=== PATIENT | female | born 1980 | race American Indian/Alaskan Native ===

== ENCOUNTER 2017-02-24 10:46 | Emergency (ER) | payer MEDICAID ==
[2017-02-24 10:46] VITALS: BMI 22.8
[2017-02-24 11:07] VITALS: RESP 18; TEMP 97.7; O2SAT 99
[2017-02-24] MEDS ORDERED: Sodium Chloride 0.9% 1,000 ML IV STA (11:40)
--- NOTE | 2017-02-24 11:46 | ED PDOC ---
Arrival/HPI - General Chief Complaint: Abdominal Pain Time Seen by Provider: 02/24/17 11:25 Historian: Patient - History of Present Illness Narrative History of Present Illness (Text): 02/24/17 11:40 36yo female who present with complaint of b/l flank and back pain x 3days. + Dysuria. States she was constipation, but able to move her bowel this morning with OTC laxative. She denies urinary frequency, hematuria, nausea, vomiting, diarrhea, constipation, trauma, any other complaint. Past Medical History - Provider Review Nursing Documentation Reviewed: Yes - Infectious Disease Hx of Infectious Diseases: None - Tetanus Immunization Tetanus Immunization: Unknown - Past Medical History Past Medical History: No Previous - Psychiatric Hx Psychophysiologic Disorder: Yes Hx Anxiety: Yes Hx Depression: No Hx Emotional Abuse: No Hx Physical Abuse: No Hx Substance Use: No - Past Surgical History Past Surgical History: No Previous - Anesthesia Hx Anesthesia: No - Suicidal Assessment Feels Threatened In Home Enviroment: No Family/Social History - Physician Review Nursing Documentation Reviewed: Yes Family/Social History: Unknown Family HX Smoking Status: Light Smoker < 10 Cigarettes Daily Hx Alcohol Use: Yes Hx Substance Use: No Substance used: ecstacy Hx Substance Use Treatment: No Allergies/Home Meds Allergies/Adverse Reactions: Allergies No Known Allergies Allergy (Verified 02/24/17 11:03) Review of Systems - Physician Review All systems were reviewed & negative as marked: Yes - Review of Systems Constitutional: Normal Eyes: Normal ENT: Normal Respiratory: Normal Cardiovascular: Normal Gastrointestinal: Abdominal Pain. absent: Constipation, Diarrhea, Nausea, Vomiting, Hematochezia, Hematemesis Genitourinary Female: Normal Musculoskeletal: Normal Skin: Normal Neurological: Normal Endocrine: Normal Hemo/Lymphatic: Normal Psychiatric: Normal Physical Exam Vital Signs Reviewed: Yes Vital Signs Temp Pulse Resp BP Pulse Ox 02/24/17 12:36 99 H 18 108/74 99 02/24/17 11:06 97.7 F 105 H 18 106/72 99 Temperature: Afebrile Blood Pressure: Normal Pulse: Regular Respiratory Rate: Normal Appearance: Positive for: Well-Appearing, Non-Toxic, Comfortable Pain Distress: None Mental Status: Positive for: Alert and Oriented X 3 - Systems Exam Head: Present: Atraumatic, Normocephalic Pupils: Present: PERRL Extroacular Muscles: Present: EOMI Conjunctiva: Present: Normal Mouth: Present: Moist Mucous Membranes Neck: Present: Normal Range of Motion Respiratory/Chest: Present: Clear to Auscultation, Good Air Exchange. No: Respiratory Distress, Accessory Muscle Use Cardiovascular: Present: Regular Rate and Rhythm, Normal S1, S2. No: Murmurs Abdomen: Present: Tenderness (B/L flank), Normal Bowel Sounds, Other (Soft). No : Distention, Peritoneal Signs, Rebound, Guarding, McBurney's Point Tender, Rovsing's Sign Present Back: No: CVA Tenderness Upper Extremity: Present: Normal Inspection. No: Cyanosis, Edema Lower Extremity: Present: Normal Inspection. No: Edema Neurological: Present: GCS=15, CN II-XII Intact, Speech Normal Skin: Present: Warm, Dry, Normal Color. No: Rashes Psychiatric: Present: Alert, Oriented x 3, Normal Insight, Normal Concentration Medical Decision Making ED Course and Treatment: 02/24/17 19:02 PT was afebrile and hemodynamically stable in ED. She was treated with a dose of Rocephin for UTI in ED and DC home with Cipro. Referred to her PMD. PT complained of cough on further evaluation. Her lung was CTA b/l. She notes that she smokes cigarette. Was counselled on smoking cessation. Rx of Tessalon given. - Lab Interpretations Lab Results: Lab Results 02/24/17 11:45: Urine Color Yellow, Urine Appearance Cloudy, Urine pH 6.0, Ur Specific [place] 1.025, Urine Protein 100 H, Urine Glucose (UA) Negative, Urine Ketones Negative, Urine Blood Moderate H, Urine Nitrate Positive H, Urine Bilirubin Negative, Urine Urobilinogen 0.2, Ur Leukocyte Esterase Large H, Urine RBC 1 - 3, Urine WBC Tntc, Ur Epithelial Cells 1 - 3, Urine Bacteria Mod - Medication Orders Current Medication Orders: Discontinued Medications Ceftriaxone Sodium (Rocephin) 1 gm IM STAT STA PRN Reason: Protocol Stop: 02/24/17 12:17 Last Admin: 02/24/17 12:56 Dose: 1 gm IM Administration Charges Document 02/24/17 12:56 HI (Rec: 02/24/17 12:57 [place] [facility] [id number] Injection Site MAR Injection Site Left Gluteus Randy Charges for Administration # of IM Administrations 1 Disposition/Present on Arrival - Present on Arrival Any Indicators Present on Arrival: No History of DVT/PE: No History of Uncontrolled Diabetes: No Urinary Catheter: No History of Decub. Ulcer: No History Surgical Site Infection Following: None - Disposition Have Diagnosis and Disposition been Completed?: Yes Diagnosis: UTI (urinary tract infection), Cough Disposition: HOME/ ROUTINE Disposition Time: 12:50 Patient Plan: Discharge Condition: STABLE Discharge Instructions (ExitCare): Urinary Tract Infection in Women (ED), Acute Cough (ED) Additional Instructions: Drink plenty of fluid and take cranberry supplement Follow up with your doctor Return to ED for any new or worsening symptoms Prescriptions: Albuterol HFA [Ventolin HFA 90 mcg/actuation (8 g)] 2 puff IH [id number] #1 puff Benzonatate [Tessalon Perle] 100 mg PO TID #20 capsule Ciprofloxacin [Cipro] 500 mg PO BID #14 tab Referrals: [facility] at [facility] [place] [Outside] - Follow up with primary Forms: [employer] ([place])
[2017-02-24 11:49] LABS: URINE BILIRUBIN NEGATIVE (NEGATIVE); URINE BLOOD MODERATE (NEGATIVE); URINE GLUCOSE (UA) NEGATIVE (NEGATIVE); URINE KETONE NEGATIVE (NEGATIVE); URINE LEUKOCYTE ESTERASE LARGE Leu/uL (NEGATIVE); URINE PROTEIN 100 mg/dL (<30 mg/dL); URINE UROBILINOGEN 0.2 E.U./dL (<1 E.U./dL)
[2017-02-24 11:50] LABS: URINE APPEARANCE CLOUDY (CLEAR); URINE COLOR YELLOW (YELLOW)
[2017-02-24 11:57] LABS: URINE WBC TNTC /hpf (0-6)
[2017-02-24 11:58] LABS: URINE BACTERIA MOD (NEG)
[2017-02-24] MEDS ORDERED: cefTRIAXone (Rocephin) 1 gm Inj IM STA ×2 (12:12→12:16)
[2017-02-24 12:36] VITALS: BP 108/74; PULSE 99
== END 2017-02-24 13:22 | disposition home or self-care (01) ==
LOC: ED 10:46
DX: N39.0 Urinary tract infection, site not specified (principal); R05 Cough; F17.210 Nicotine dependence, cigarettes, uncomplicated
CPT/HCPCS: 81001; 87086; 87181; 96372; 99283; J0696

== ENCOUNTER 2017-09-27 15:09 | Emergency (ER) | payer MEDICAID ==
[2017-09-27 15:10] VITALS: BMI 22.8
[2017-09-27 15:26] VITALS: RESP 18
[2017-09-27 16:11] VITALS: TEMP 98.2; O2SAT 98
[2017-09-27 16:23] LABS: BASO # 0.02 K/mm3 (0.0-2.0); BASO % 0.3 % (0.0-3.0); EOS # 0.1 (0.0-0.7); EOS % 1.6 % (1.5-5.0); GRAN # 3.93 (1.4-6.5); GRAN % 56.3 % (50.0-68.0); HEMOGLOBIN 14.7 g/dL (12.0-16.0); LYMPH # 2.4 (1.2-3.4); LYMPH % 34.6 % (22.0-35.0); MEAN CELL VOLUME 93.1 fl (80.0-105.0); MEAN CORPUSCULAR HEMOGLOBIN 32.6 pg (25.0-35.0); MEAN PLATELET VOLUME 9.4 fl (7.0-11.0); MONO # 0.5 (0.1-0.6); MONO % 7.2 % (1.0-6.0); RBC 4.51 10^6/uL (3.5-6.1); RED CELL DISTRIBUTION WIDTH 13.5 % (11.5-14.5)
--- NOTE | 2017-09-27 16:26 | ED PDOC ---
Arrival/HPI - General Chief Complaint: Anxiety Time Seen by Provider: 09/27/17 15:47 Historian: Patient - History of Present Illness Narrative History of Present Illness (Text): 09/27/17 16:24 37-year-old female with a history of anxiety presents today with extreme anxiety. Patient states she has been anxious for the past 2 months and has been unable to get out of her house due to the anxiety. Patient states she has not followed up with any provider for her anxiety recently. Patient states she is not taking any medications. Patient states she noticed a bump on the vagina today and that scared her enough to come into the emergency room for evaluation. Patient states beyond today's visit she has barely been out of the house in the past 2 months. Patient states she's not eating well. Patient states she is having some issues sleeping. She denies dizziness or weakness. She denies abdominal pain. Denies fevers or chills. No other complaints Time/Duration: > month Past Medical History - Provider Review Nursing Documentation Reviewed: Yes - Travel History Have you recently traveled outside [place] w/in the past 3 mons?: No - Infectious Disease Hx of Infectious Diseases: None - Tetanus Immunization Tetanus Immunization: Unknown - Past Medical History Past Medical History: No Previous - Psychiatric Hx Psychophysiologic Disorder: Yes Hx Anxiety: Yes Hx Depression: No Hx Emotional Abuse: No Hx Physical Abuse: No Hx Substance Use: No - Past Surgical History Past Surgical History: No Previous - Anesthesia Hx Anesthesia: No - Suicidal Assessment Feels Threatened In Home Enviroment: No Family/Social History - Physician Review Nursing Documentation Reviewed: Yes Family/Social History: Unknown Family HX Smoking Status: Light Smoker < 10 Cigarettes Daily Hx Alcohol Use: Yes Frequency of alcohol use: Socially Hx Substance Use: No Substance used: ecstacy Hx Substance Use Treatment: No Allergies/Home Meds Allergies/Adverse Reactions: Allergies No Known Allergies Allergy (Verified 09/27/17 15:26) Home Medications: Home Meds Medication Instructions Recorded Confirmed Unobtainable 09/27/17 09/27/17 Review of Systems - Review of Systems Constitutional: absent: Fatigue, Fevers Respiratory: absent: SOB, Cough Cardiovascular: absent: Chest Pain, Palpitations Gastrointestinal: Appetite Changes. absent: Abdominal Pain, Nausea, Vomiting Genitourinary Female: absent: Dysuria, Frequency, Hematuria Musculoskeletal: absent: Arthralgias, Back Pain, Neck Pain Skin: Rash. absent: Pruritis Neurological: absent: Headache, Dizziness Psychiatric: Anxiety, Depression. absent: Suicidal Ideation Physical Exam Vital Signs Reviewed: Yes Vital Signs Temp Pulse Resp BP Pulse Ox 09/27/17 19:36 66 18 118/72 98 09/27/17 18:00 86 18 118/70 98 09/27/17 16:10 98.2 F 98 H 18 121/71 98 09/27/17 15:22 98.6 F 98 H 18 125/76 100 Temperature: Afebrile Blood Pressure: Normal Pulse: Regular Respiratory Rate: Normal Appearance: Positive for: Well-Appearing, Non-Toxic, Comfortable Pain Distress: None Mental Status: Positive for: Alert and Oriented X 3 - Systems Exam Head: Present: Atraumatic Mouth: Present: Moist Mucous Membranes Respiratory/Chest: Present: Clear to Auscultation Cardiovascular: Present: Regular Rate and Rhythm Abdomen: No: Tenderness, Rebound, Guarding Genitourinary/Pelvic Exam: Present: Vaginal Discharge (white thick discharge noted), Vaginal Lesions (small area of irritation with possible small ulceration (pin point sized)), Other (chaparoned by Nayla DAWKINS EMT). No: Normal External Genitalia, Vaginal Bleeding Upper Extremity: Present: Normal Inspection, Normal ROM Lower Extremity: Present: Normal Inspection, Normal ROM Neurological: Present: GCS=15, Speech Normal Skin: Present: Warm, Dry, Normal Color Psychiatric: Present: Alert, Oriented x 3 Medical Decision Making ED Course and Treatment: 09/27/17 16:26 Patient is nontoxic well-appearing in no distress vital signs are stable. CBC WNL CMP WNL Tylenol WNL Salicylate WNL Alcohol level WNL Urine drug screen wnl UA; wnl cxr: wnl ekg normal sinus rhythm at 91 bpm incomplete right bundle branch block normal axis normal interval no ST elevations pt with 1 small area of irritation noted to moore of clitoris; ? herpes, ? ulceration. pt does not want to be treated for herpes; pt states she wants testing to confirm that it is herpes. will send herpes lab test; ua shows yeast; pt given diflucan 150mg po pt is medically cleared for PES evaluation Patient was seen and evaluated by PES screener Patient cleared psychiatrically for discharge Patient was advised to follow the primary care physician in the [facility]. 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 Patient verbalizes understanding of discharge instructions and need for immediate followup. all aspects of this case were discussed the attending of record. Impression; anxiety, candidiasis follow-up with her primary care physician within the next 2 days Follow-up with the [facility] within the next 2 days Followup with behavioral health Return immediately if symptoms worsen or persist or if new concerning symptoms develop - Lab Interpretations Lab Results: 09/27/17 16:00 09/27/17 16:00 Lab Results 09/27/17 16:00: Alcohol, Quantitative < 10 09/27/17 16:00: Salicylates < 1 L, Acetaminophen < 10.0 L 09/27/17 16:00: Urine Opiates Screen Negative, Urine Methadone Screen Negative, Ur Barbiturates Screen Negative, Ur Phencyclidine Scrn Negative, Ur Amphetamines Screen Negative, U Benzodiazepines Scrn Negative, U Oth Cocaine Metabols Negative, U Cannabinoids Screen Negative 09/27/17 16:00: Sodium 144, Potassium 4.0, Chloride 107, Carbon Dioxide 25, Anion Gap 16, BUN 9, Creatinine 0.9, Est GFR ( Amer) > 60, Est GFR (Non- Af Amer) > 60, Random Glucose 80, Calcium 9.6, Total Bilirubin 0.7, AST 17, ALT 22, Alkaline Phosphatase 64, Total Protein 7.3, Albumin 4.3, Globulin 3.0, Albumin/Globulin Ratio 1.4 09/27/17 16:00: Urine Color Yellow, Urine Appearance Clear, Urine pH 6.0, Ur Specific [place] >= 1.030, Urine Protein 30 H, Urine Glucose (UA) Negative, Urine Ketones 15 H, Urine Blood Negative, Urine Nitrate Negative, Urine Bilirubin Small H, Urine Urobilinogen 2.0 H, Ur Leukocyte Esterase Negative, Urine RBC 0 - 2, Urine WBC 1 - 3, Ur Epithelial Cells 6 - 8, Amorphous Sediment Few, Urine Bacteria Many, Urine Other Uyeast 09/27/17 16:00: WBC 7.0, RBC 4.51, Hgb 14.7, Hct 42.0, MCV 93.1, MCH 32.6, MCHC 35.0, RDW 13.5, Plt Count 238, MPV 9.4, Gran % 56.3, Lymph % (Auto) 34.6, [place] % (Auto) 7.2 H, Eos % (Auto) 1.6, Baso % (Auto) 0.3, Gran # 3.93, Lymph # (Auto ) 2.4, [place] # (Auto) 0.5, Eos # (Auto) 0.1, Baso # (Auto) 0.02 - Medication Orders Current Medication Orders: Discontinued Medications Fluconazole (Diflucan) 150 mg PO STAT STA PRN Reason: Protocol Stop: 09/27/17 18:24 Last Admin: 09/27/17 18:52 Dose: 150 mg Disposition/Present on Arrival - Present on Arrival Any Indicators Present on Arrival: No History of DVT/PE: No History of Uncontrolled Diabetes: No Urinary Catheter: No History of Decub. Ulcer: No History Surgical Site Infection Following: None - Disposition Have Diagnosis and Disposition been Completed?: Yes Diagnosis: Anxiety, Candidiasis Disposition: HOME/ ROUTINE Disposition Time: 19:16 Patient Plan: Discharge Condition: GOOD Discharge Instructions (ExitCare): Anxiety, Adult (DC), Yeast Infection (DC) Additional Instructions: follow-up with her primary care physician within the next 2 days Follow-up with the [facility] within the next 2 days Followup with behavioral health Center within the next 2 days. Return immediately if symptoms worsen or persist or if new concerning symptoms develop [facility]errals: [facility] [[facility]] - Follow up with primary [facility] at [facility] [place] [Outside] - Follow up with primary Su Villar MD [Staff Provider] - [facility] [Outside] - Follow up with primary Forms: [employer] ([place])
[2017-09-27 16:28] LABS: ALB/GLOB RATIO 1.4 (1.1-1.8); ALBUMIN 4.3 g/dL (3.0-4.8); ALT/SGPT 22 U/L (7-56); AST/SGOT 17 U/L (14-36); BLOOD UREA NITROGEN 9 mg/dL (7-21); CALCIUM 9.6 mg/dL (8.4-10.5); GFR AFRICAN-AMERICAN > 60; GFR NON-AFRICAN AMERICAN > 60
[2017-09-27 16:29] LABS: ACETAMINOPHEN < 10.0 ug/ml (10.0-20.0); SALICYLATE < 1 mg/dL (2.0-20.0)
[2017-09-27 16:39] LABS: BARBITURATES, UR NEGATIVE (NEGATIVE); BENZODIAZEPINES, UR NEGATIVE (NEGATIVE); OPIATES, UR NEGATIVE (NEGATIVE); PHENCYCLIDINE, UR NEGATIVE (NEGATIVE)
[2017-09-27 17:14] LABS: URINE BILIRUBIN SMALL (NEGATIVE); URINE BLOOD NEGATIVE (NEGATIVE); URINE GLUCOSE (UA) NEGATIVE (NEGATIVE); URINE LEUKOCYTE ESTERASE NEGATIVE Leu/uL (NEGATIVE); URINE PROTEIN 30 mg/dL (<30 mg/dL)
[2017-09-27 17:21] LABS: URINE APPEARANCE CLEAR (CLEAR); URINE COLOR YELLOW (YELLOW)
[2017-09-27 17:33] LABS: URINE AMORPHOUS SEDIMENT FEW; URINE BACTERIA MANY (NEG); URINE RBC 0 - 2 /hpf (0-2)
[2017-09-27 19:37] VITALS: BP 118/72; PULSE 66
--- NOTE | 2017-09-28 09:45 | CARD ---
APPROVED REPORT EKG Measurement Heart [id number] <Conclusion> Normal sinus rhythm Possible Left atrial enlargement Incomplete right bundle branch block Borderline ECG
[2017-09-28 21:56] LABS: SPECIMEN SOURCE FLUID
== END 2017-09-27 19:36 | disposition home or self-care (01) ==
LOC: ED 15:09
DX: F41.9 Anxiety disorder, unspecified (principal); B37.9 Candidiasis, unspecified